=== PATIENT | female | born 1975 | race Asian ===

== ENCOUNTER 2022-10-03 01:53 | Day surgery (SDC) | payer OTHER, SELFPAY ==
[2022-08-21 13:05] VITALS: BMI 22.1
--- NOTE | 2022-08-21 13:10 | PC.NURSE ---
Report to the Outpatient Waiting Room, entrance under the green pavilion located off [facility], at time 0900 on date 08/29/22. Planned Procedure Time: 1100. Time changes happen often and if your time is changed the preop area will call you the afternoon before. - You and your visitor will be asked to self-screen and do not enter if you have any COVID symptoms. - A mask is optional within the hospital at this time. Patients may have clear liquids (water, carbonated beverages, clear teas, apple juice) until 3 hours prior to surgery with a maximum of 20 ounces. - No food from midnight until time of surgery Take the following medications with a SIP of water the morning of surgery: AMLODIPINE DO NOT STOP ANY OF YOUR OTHER PRESCRIPTION MEDICATIONS PRIOR TO SURGERY?EXCEPT THE FOLLOWING Medications to discontinue per physician: VITAMIN Date to take last dose: 08/25/22 Please no make-up, nail paraguayan, hairspray, perfume, deodorant, or body powder the day of surgery. No jewelry (including any body piercings) or valuables the day of surgery, leave them at home. Please take a shower or bath the night before, or the morning of, surgery with an antibacterial soap. Wear comfortable, loose fitting clothing. - Jewelry must be removed prior to entering the operating room. Rings and piercings that are not removed may be cut off. - The hospital will not accept responsibility for valuables. - Please leave all valuables, including medications, at home the day of surgery. If you are going home after surgery, a licensed p d driver must drive you home. - NO public transportation without another adult if you receive anesthesia. - We recommend that an adult stay with you for 24 hours following discharge. - We also recommend that you do not drive, make important decision, drink alcoholic beverages, or take any drugs that were not prescribed by your health care provider for at least 24 hours after your discharge time. Follow any additional instructions given to you from your surgeon. If you or anyone in your household have experienced Covid symptoms in the past week, please notify your surgeon or the nurse liaison at the phone number below for possible testing. Telephone instructions given to PT - DERIC JEREZ and asked if any additional questions and then verbalized understanding. Patient advised to call surgeon office or pre surgery nurse liaison [phone] if any additional questions.
--- NOTE | 2022-09-27 14:50 | PC.NURSE ---
Confirmed with patient no changes in health history since previous pre-op call. Instructions reviewed with patient and questions answered. Patient verbalized understanding. Report to the Outpatient Waiting Room, entrance under the green pavilion located off [facility], at time 0915 on date 10/03/2022. Planned Procedure Time: 1115. Time changes happen often and if your time is changed the preop area will call you the afternoon before. - You and your visitor will be asked to self-screen and do not enter if you have any COVID symptoms. - A mask is optional within the hospital at this time. Patients may have clear liquids (water, carbonated beverages, clear teas, apple juice) until 3 hours prior to surgery with a maximum of 20 ounces. - No food from midnight until time of surgery - Infants may have breast milk until 4 hours before surgery, infant formula 6 hours prior to surgery. - Children will be allowed to drink immediately following surgery. If applicable, please bring a bottle or sippy cup to assist with drinking. Juice, water, soda, and popsicles are readily available. For infants on formula, please bring formula the day of surgery. Pacifiers are allowed. Take the following medications with a SIP of water the morning of surgery: Amlodipine DO NOT STOP ANY OF YOUR OTHER PRESCRIPTION MEDICATIONS PRIOR TO SURGERY ?EXCEPT THE FOLLOWING Medications to discontinue per physician N/A Please no make-up, nail liberian, hairspray, perfume, deodorant, or body powder the day of surgery. No jewelry (including any body piercings) or valuables the day of surgery, leave them at home. Please take a shower or bath the night before, or the morning of, surgery with an antibacterial soap. Wear comfortable, loose fitting clothing. Children are encouraged to wear pajamas. - Jewelry must be removed prior to entering the operating room. Rings and piercings that are not removed may be cut off. - The hospital will not accept responsibility for valuables. - Please leave all valuables, including medications, at home the day of surgery. If you are going home after surgery, a licensed pick up truck driver must drive you home. - NO public transportation without another adult if you receive anesthesia. - We recommend that an adult stay with you for 24 hours following discharge. - We also recommend that you do not drive, make important decision, drink alcoholic beverages, or take any drugs that were not prescribed by your health care provider for at least 24 hours after your discharge time. For Pediatric surgeries, we recommend two adults accompany the child home. Follow any additional instructions given to you from your surgeon. If you or anyone in your household have experienced Covid symptoms in the past week, please notify your surgeon or the nurse liaison at the phone number below for possible testing. Telephone instructions given to ____Patient- Dotty Carlson and asked if any additional questions and then verbalized understanding. Patient advised to call surgeon office or pre surgery nurse liaison [phone] if any additional questions.
--- NOTE | 2022-10-02 10:12 | P.HP_ITS ---
H&P: HPI History of Present Illness Date/Time: 10/02/22 10:12 47-year-old 1 para 0101 female presents for evaluation and treatment of irregular vaginal bleeding. She has had intermittent spotting and has a known endocervical polyp. Ultrasound was ordered which showed small fibroid but no other specific abnormalities were noted, also blood work has shown that she is menopausal. Chief Complaint: postmenopausal bleeding Review of Systems Review of Systems: All systems reviewed & are unremarkable except as noted in HPI and below PMFSH Past Medical History Medical History Fatty liver Hyperlipidemia Hypertension Incompetent cervix Screening mammogram, encounter for TIA (transient ischemic attack) (~2013) Vitamin B12 deficiency Surgical History Surgical History History of hysteroscopy (~2010) done in [facility] for heavy bleeding Family History Family History Father Heart disease Hypertension Mother Acute lymphoid leukemia Other Malignant neoplasm of lung maternal aunt Myasthenia gravis maternal aunt Social History Social History Smoking status: Never smoker Alcohol intake: never Substance use: never Substance use type: does not use Living arrangements: with family Additional living arrangements comments: Occupation/Education: occupation Additional occupation/education comments: Nurse Gender identity (if verbalized by the patient): Female Sexual Orientation (if Verbalized by the Patient): Straight or Heterosexual Spiritual care concerns: No Meds Home Medications and Allergies Home Medications Medication Instructions Recorded Confirmed Type amlodipine 5 mg tablet 5 mg PO DAILY 06/13/22 08/21/22 History atorvastatin 10 mg tablet 10 mg PO QHS 06/13/22 08/21/22 History Allergies Allergy/AdvReac Type Severity Reaction Status Date / Time No Known Allergies Allergy Verified 08/21/22 13:04 Exam Const: General: cooperative and healthy appearing Resp: Effort & Inspection: normal respiratory effort Auscultation: clear to auscultation bilaterally Cardio: Rate: regular rate Rhythm: regular rhythm GI: Inspection: normal to inspection Auscultation: normal bowel sounds : External Female Exam: normal external appearance Speculum Exam - Vagina: normal appearance of the vagina Speculum Exam - Cervix: normal appearance of the cervix ( polyp noted) Bimanual exam- vagina & uterus: normal bimanual exam Bimanual Exam- Adnexa, other: normal adnexae Assessment and Plan Assessment and plan (1) Postmenopausal bleeding: Code(s): N95.0 - Postmenopausal bleeding Status: Acute Assessment and Plan: most likely due to polyp (2) Endocervical polyp: Code(s): N84.1 - Polyp of cervix uteri Status: Acute (3) Fibroid uterus: Code(s): D25.9 - Leiomyoma of uterus, unspecified Status: Acute Plan 1. Hysteroscopy with uterine curettings 2. Polypectomy
--- NOTE | 2022-10-03 09:08 | WPDHPUPDATE1 ---
History and Physical Update Update Date/Time: 10/03/22 09:08 History and Physical has been reviewed, including an updated exam of the patient. There are NO changes in the patient's condition. Risks, benefits, and alternatives have been discussed and questions answered. Patient agrees to proceed with procedure.
[2022-10-03 10:15] LABS: Hematocrit 40.3 % (37.0-47.0); Hemoglobin 13.4 g/dL (12.0-15.0); Mean Corpuscular HGB Conc 33.3 g/dl (32-36); Mean Corpuscular Hemoglobin 30.8 pg (26-34); Mean Corpuscular Volume 92.6 fl (80-100); Mean Platelet Volume 9.9 fl (7.4-10.4); Platelet Count Result 305 k/mm3 (150-375); Red Blood Count 4.35 M/mm3 (4.2-5.4); Red Cell Distribution Width 13.4 % (11.5-14.5); White Blood Count 10.2 K/mm3 (4.5-10.0)
[2022-10-03] MEDS: LACTATED RINGERS 1,000 ML 30 ML IV CONT (10:15)
[2022-10-03] MEDS: ACETAMINOPHEN 500 MG TABLET 1000 MG PO (10:15)
--- NOTE | 2022-10-03 10:23 | WPDANESEPPF ---
Anes - Initial Pre Proc Eval Procedure: Operation Date: 10/03/22 11:15 Proposed Procedures p Hysteroscopy, Dilation and Curettage - Olegario Stearns MD Date/Time: 10/03/22 10:23 Surgeon: Olegario Stearns MD Pre Op Diagnosis: abn uterine bleeding Patient Data Age: 47 Gender: F Height: 1.57 m Weight: 55 kg Allergies Allergy/AdvReac Type Severity Reaction Status Date / Time No Known Allergies Allergy Verified 08/21/22 13:04 Home Medications Medication Instructions Recorded Confirmed Type amlodipine 5 mg tablet 5 mg PO DAILY 06/13/22 08/21/22 History atorvastatin 10 mg tablet 10 mg PO QHS 06/13/22 08/21/22 History Laboratory Tests 10/03/22 10:08 WBC 10.2 H K/mm3 (4.5-10.0) RBC 4.35 M/mm3 (4.2-5.4) Hgb 13.4 g/dL (12.0-15.0) Hct 40.3 % (37.0-47.0) MCV 92.6 fl (80-100) MCH 30.8 pg (26-34) MCHC 33.3 g/dl (32-36) RDW 13.4 % (11.5-14.5) Plt Count 305 k/mm3 (150-375) MPV 9.9 fl (7.4-10.4) Patient hx anesthesia problems: none Family hx anesthesia problems: none Results Review: All pre-operative results and documents have been reviewed as part of the pre-operative evaluation. [facility] Past Medical History Medical History Fatty liver Hyperlipidemia Hypertension Incompetent cervix Screening mammogram, encounter for TIA (transient ischemic attack) (~2013) Vitamin B12 deficiency Surgical History Surgical History History of hysteroscopy (~2010) done in [facility] for heavy bleeding Family History Family History Father Heart disease Hypertension Mother Acute lymphoid leukemia Other Malignant neoplasm of lung maternal aunt Myasthenia gravis maternal aunt Social History Social History Smoking status: Never smoker Alcohol intake: never Substance use: never Substance use type: does not use Living arrangements: with family Additional living arrangements comments: Occupation/Education: occupation Additional occupation/education comments: Nurse Gender identity (if verbalized by the patient): Female Sexual Orientation (if Verbalized by the Patient): Straight or Heterosexual Spiritual care concerns: No Anes - Eval Final PreProcedure Day of Procedure 10/03/22 10:23 Patient weight: normal Heart: regular rate and rhythm Lungs: clear to auscultation Airway: Mallampati scale class II Neurological: alert and oriented Last oral intake: >/= 8 hours ASA classification: II Emergent: no Anesthetic plan: proceed Anesthesia type and monitoring: general GIVS and standard monitoring Results Review: All pre-operative results and documents have been reviewed as part of the pre-operative evaluation. Informed Consent: The patient's anesthetic plan and its attendant risks and benefits were discussed with the patient/family/POA. Questions were solicited and answers provided to the satisfaction of the patient/family/POA.
[2022-10-03 10:33] VITALS: BP 139/88; PULSE 73; RESP 14; TEMP 36.1; O2SAT 97
--- NOTE | 2022-10-03 11:43 | W.PM.PROC2 ---
Procedure Note - Detailed Date of Procedure 10/03/22 Pre-op Diagnosis 1. Postmenopausal bleeding 2. Endometrial polyp Post-op Diagnosis Same Procedure Performed 1. Hysteroscopy with uterine curettings 2. Endometrial polypectomy Surgeon Olegario Stearns MD Anesthesia MAC Findings Endometrial polyp originating in the mid cavity of the uterus and prolapsed through the cervix Description of Procedure Patient was prepped and draped in usual manner for this procedure. Hysteroscope was placed with base of the polyp the identified. Using ring forceps the bulk of the external polyp was removed without difficulty and hysteroscopic leave the base and the remaining portion of the polyp were removed. The rest of the endometrial cavity was without abnormality and smooth. There was no significant bleeding the patient was sent to recovery room in stable condition. Estimated Blood Loss 10 Drains No Packing No Pathology Yes Complications No immediate complications Condition Stable Disposition PACU [facility] Billing Surgery - Charge Forward: Surgery Billing
[2022-10-03 11:50] VITALS: BP 121/72; PULSE 61; RESP 14; O2SAT 96
[2022-10-03 12:20] VITALS: BP 160/83; PULSE 70; RESP 16
[2022-10-03 12:50] VITALS: BP 110/67; PULSE 52; RESP 16
== END 2022-10-03 13:15 | disposition home or self-care (01) ==
PROVIDERS: PCP Internal Medicine; Visit Provider Obstetrics & Gynecology
PROC: 0U5B8ZZ Destruction of Endometrium, Via Natural or Artificial Opening Endoscopic (ICD-10-PCS; CPT 58563; principal; 2022-10-03 11:15)
DX: N95.0 Postmenopausal bleeding (principal); N84.1 Polyp of cervix uteri; I10 Essential (primary) hypertension; E78.5 Hyperlipidemia, unspecified; K76.0 Fatty (change of) liver, not elsewhere classified; Z86.73 Personal history of transient ischemic attack (TIA), and cerebral infarction without residual deficits
CPT/HCPCS: 58558; 36415; 85027; 88305; A9270; J2250; J3010; J7120